=== PATIENT | male | born 1980 | race Caucasian/White ===

== ENCOUNTER 2018-08-23 17:49 | Emergency (ER) | payer SELFPAY ==
[2018-08-23] MEDS ORDERED: Lidocaine 1% w/Epinephrine 1:100K 30 ML VIAL ONE (18:25)
[2018-08-23] MEDS ORDERED: Ibuprofen 800 MG TAB ONE (19:06)
[2018-08-23] MEDS ORDERED: Sulfameth/Trimethoprim DS 800-160mg TAB ONE (19:06)
[2018-08-23] MEDS ORDERED: Triple Antibiotic Oint 1 GM Packet ONE (19:06)
== END 2018-08-23 19:25 | disposition home or self-care (01) ==
LOC: MADERS 17:49
DX: L02.31 Cutaneous abscess of buttock (principal)
CPT/HCPCS: 46040; J2001